=== PATIENT | male | born 1940 | race Caucasian/White ===

== ENCOUNTER → 2019-01-27 | Outpatient (CLI) | payer MEDICARE, BC ==
--- NOTE | 2019-01-27 08:57 | PCVCIMAG ---
EXAM: BILATERAL CAROTID DUPLEX INDICATION: Carotid Occlusive Disease. FINDINGS: Doppler Measurements (centimeters per second): RIGHT: Peak CCA-76, Peak ECA-241, Diastolic ICA-27, Peak ICA-132, ICA/CCA Ratio-1.5. LEFT: Peak CCA-102, Peak ECA-117, Diastolic ICA-24, Peak ICA-103, ICA/CCA Ratio-1.0. RIGHT CAROTID: The carotid bulb has moderate plaque. The proximal internal carotid artery shows 40-50% stenosis. The common carotid artery shows no significant stenosis. The external carotid artery shows 70% stenosis. LEFT CAROTID: The carotid bulb has moderate plaque. The proximal internal carotid artery shows <40% stenosis. The common carotid artery shows no significant stenosis. The external carotid artery shows no significant stenosis. Antegrade flow in both vertebral arteries. IMPRESSION: 40-50% stenosis of the right internal carotid artery with moderate plaque. <40% stenosis of the left internal carotid artery with moderate plaque. No prior studies available for comparison. LOC:[id number]
== END | disposition home or self-care (01) ==
LOC: PCVCIMAG 08:53
PROVIDERS: ATTEND Internal Medicine Cardiovascular Disease
DX: R09.89 Other specified symptoms and signs involving the circulatory and respiratory systems (principal); I65.23 Occlusion and stenosis of bilateral carotid arteries; I25.10 Atherosclerotic heart disease of native coronary artery without angina pectoris; E78.5 Hyperlipidemia, unspecified; I10 Essential (primary) hypertension; Z82.49 Family history of ischemic heart disease and other diseases of the circulatory system; Z87.891 Personal history of nicotine dependence; Z88.8 Allergy status to other drugs, medicaments and biological substances
CPT/HCPCS: 36415; 93005; 93880; G0463